=== PATIENT | male | born 1995 | race African-American/Black ===

== ENCOUNTER → 2018-10-24 | Outpatient (CLI) | payer OTHER ==
--- NOTE | 2018-10-24 11:39 | RAD ---
CHEST PA LATERAL History: Shortness of breath Comparison: None. Findings: Frontal and lateral views of chest were obtained. Costophrenic angles are not fully included on the frontal view. The cardiomediastinal silhouette is normal. Pulmonary vasculature is normal. The lungs are clear. No pleural effusion or pneumothorax is seen. There is no acute bone abnormality. IMPRESSION: No acute cardiopulmonary process. Electronically signed by: Arron Sanchez MD (10/24/2018 11:35 AM) [facility]
== END | disposition home or self-care (01) ==
LOC: RAD 10:52
PROVIDERS: ATTEND Internal Medicine Critical Care Medicine
DX: R06.02 Shortness of breath (principal)
CPT/HCPCS: 71046